=== PATIENT | female | born 1990 | race Caucasian/White ===

== ENCOUNTER 2016-08-23 16:37 | Emergency (ER) | payer SELFPAY ==
[~2016-08-23] VITALS: Ht 165.1 cm; Wt 60.0 kg
[~2016-08-23 16:37] MED LIST: CEPH500 PO; SULF-154 PO
[2016-08-23 16:38] VITALS: BP 141/81; PULSE 81; RESP 16; TEMP 98.4; O2SAT 99
[2016-08-23] MEDS ORDERED: ALBUAER3 INH (17:28)
[2016-08-23] MEDS ORDERED: AZIT250T3 PO (17:28)
--- NOTE | 2016-08-23 17:28 | PD ---
HPI Chief Complaint: Cold / Flu Symptoms Time Seen by Provider: 16:51 Travel History International Travel<30 days: No Contact w/Intl Traveler<30days: No Traveled to known affect area: No History of Present Illness HPI This is a 25-year-old female who presents to the emergency department with 10 days of productive cough with white sputum, constant, moderate severity, associated with some rhinorrhea. She denies any fevers or chills. Her aunt was just admitted to the hospital for bacterial pneumonia and she was concerned she may have the same. She does smoke cigarettes. PFSH Past Medical History Medical History: Denies Significant Hx Diminished Hearing: No Immunizations Current: Yes ?: Unknown LMP: 08/11/16 Menopausal: No : 3 Para: 2 Miscarriage: 1 : 0 Past Surgical History Oral Surgery: Yes Other Surgery: Yes (RT HAND) Social History Alcohol Use: No Tobacco Use: Yes Substance Use: No (denies IV drug use) Allergies-Medications (Allergen,Severity, Reaction): Coded Allergies: No Known Allergies (Verified , 01/07/16) Reported Meds & Prescriptions Reported Meds & Active Scripts Active Septra Ds (Trimethoprim/Sulfamethoxazole) Tab 1 Tab PO BID Keflex 500 mg Cap (Cephalexin Monohydrate) 500 Mg Cap 500 Mg PO QID Review of Systems Except as stated in HPI: all other systems reviewed are Neg Physical Exam Narrative GENERAL:Well appearing, no acute distress SKIN: Focused skin assessment warm and dry. HEAD: Atraumatic. Normocephalic. EYES: Pupils equal and round. No injection or drainage. ENT: Moist mucous membranes NECK: Trachea midline. CARDIOVASCULAR: Regular rate and rhythm. No murmur appreciated. RESPIRATORY: Clear to auscultation. Breath sounds equal bilaterally. GASTROINTESTINAL: Abdomen soft, non-tender, nondistended. MUSCULOSKELETAL: No obvious deformities. NEUROLOGICAL: Awake and alert. No obvious cranial nerve deficits. Moving all extremities. PSYCHIATRIC: Appropriate mood and affect; insight and judgment normal. Data Data Last Documented VS Vital Signs Date Time Temp Pulse Resp B/P Pulse Ox O2 Delivery O2 Flow Rate FiO2 08/23/16 16:54 100 Room Air 08/23/16 16:38 98.4 81 16 141/81 MDM Medical Decision Making Medical Screen Exam Complete: Yes Emergency Medical Condition: Yes Interpretation(s) Afebrile, no tachycardia, hypertensive Differential Diagnosis Bronchitis, pneumonia, upper respiratory infection Narrative Course This is a 25-year-old female who presents with cough and some rhinorrhea. She has a smoking history and her symptoms of been going on for a week and a half. She is not hypoxic and otherwise very well-appearing. I think it's reasonable to treat her for acute bronchitis with azithromycin and bronchodilators. I don' t think she requires any imaging or testing. Patient will be discharged home. Diagnosis Primary Impression: Bronchitis Patient Instructions: General Instructions Additional Instructions: If you develop severe chest pain, shortness of breath, sweating, lightheadedness , dizziness or difficulty breathing return to the emergency department immediately. Followup with your primary care physician in 2-3 days if your symptoms are not resolved. Med/Other Pt SpecificInfo: Prescription(s) given Scripts Albuterol 8.5 GM Inh (Proair Hfa 8.5 GM Inh)90 Mcg/Act Aer1 Puff INH Q4H PRN ( SHORTNESS OF BREATH) #1 INHALER Ref 0 108 mcg/actuation Prov:Sakshi Vu MD 08/23/16 Azithromycin 250 Mg [id number] Mg PO DIRECTED #6 TAB Take 2 tabs (500 mg) on day 1 then 1 tab daily x 4 days. Prov:Sakshi Vu MD 08/23/16 Disposition: 01 DISCHARGE HOME Condition: Stable Sakshi Vu MD August 23, 2016 17:28
== END 2016-08-23 17:34 | disposition home or self-care (01) ==
LOC: NEPD 16:37
DX: J40 Bronchitis, not specified as acute or chronic (principal); Z72.0 Tobacco use
CPT/HCPCS: 99283

== ENCOUNTER 2017-01-05 16:12 | Emergency (ER) | payer SELFPAY ==
[~2017-01-05 16:12] MED LIST changes: +ALBUAER3 INH; +AZIT250T3 PO
[2017-01-05 16:13] VITALS: BP 133/88; PULSE 111; RESP 14; TEMP 98.4; O2SAT 98
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
[2017-01-05] MEDS ORDERED: NEOM1SOL17 LEFT EAR (16:54)
== END 2017-01-05 17:16 | disposition home or self-care (01) ==
LOC: NEPK 16:12
DX: H72.92 Unspecified perforation of tympanic membrane, left ear (principal); Z72.0 Tobacco use
CPT/HCPCS: 99283

== ENCOUNTER 2017-04-29 10:47 | Emergency (ER) | payer SELFPAY ==
[~2017-04-29] VITALS: Ht 165.1 cm; Wt 56.6 kg
[~2017-04-29 10:47] MED LIST changes: +NEOM1SOL17 LEFT EAR
[2017-04-29 10:49] VITALS: BP 119/64; PULSE 83; RESP 14; TEMP 98.6; O2SAT 96
[2017-04-29] MEDS ORDERED: IBUP1TAB7 PO (12:40)
[2017-04-29] MEDS ORDERED: POLY10O LEFT EAR (12:40)
--- NOTE | 2017-04-29 12:41 | PD ---
HPI Chief Complaint: ENT Complaint Time Seen by Provider: 12:23 Travel History International Travel<30 days: No Contact w/Intl Traveler<30days: No Traveled to known affect area: No History of Present Illness HPI 26-year-old female presents to the emergency Department with complaint of left ear pain since last night. Denies injury. Denies fevers, cough, nasal congestion, sore throat, vomiting. Had old antibiotic eardrops that she used this morning one time. Rates pain 6/10. Describes as a throbbing sensation. No known aggravating or relieving factors. No known allergies. No primary care provider. Denies significant past medical history. Has no other medical complaints. No other modifying factors or associated signs and symptoms. PFSH Past Medical History Diminished Hearing: No Immunizations Current: Yes ?: Not LMP: 2 WEEKS AGO Menopausal: No : 3 Para: 2 Miscarriage: 1 : 0 Past Surgical History Oral Surgery: Yes Other Surgery: Yes (RT HAND) Social History Alcohol Use: No Tobacco Use: Yes Substance Use: Yes (MARIJUANA) Allergies-Medications (Allergen,Severity, Reaction): Coded Allergies: No Known Allergies (Verified Adverse Reaction, Unknown, 04/29/17) Reported Meds & Prescriptions Reported Meds & Active Scripts Active Ibuprofen 800 Mg Tab 800 Mg PO Q6HR PRN Polytrim Opth Drops (Polymyxin/Trimethoprim Sulfate) 10,000-0.1 Unit/Ml-% Soln 3 Drop LEFT EAR Q6HR 7 Days Review of Systems Except as stated in HPI: all other systems reviewed are Neg Physical Exam Narrative GENERAL: Well-nourished, well-developed female patient, in no acute distress; afebrile, nontoxic-appearing SKIN: Warm and dry. No rash. HEAD: Atraumatic. Normocephalic. EYES: Pupils equal and round. No scleral icterus. No injection or drainage. EARS: Bilateral pinnae and external canals appear within normal limits. Left ear canal is erythematous and with white matter noted in front of the tympanic membranes; I tried flushing the matter from the ear canal without success. Unable to visualize left tympanic membrane. Right Tympanic membrane without erythema, loss of landmarks, and with dullness; without perforation. ENT: Mucosa pink and moist. Oral Pharynx without erythema; without edema or exudates. No uvular edema. No uvular, palatal, or tonsillar deviation. Airway patent. NECK: Trachea midline. No lymphadenopathy. CARDIOVASCULAR: Regular rate. RESPIRATORY: No accessory muscle use. GASTROINTESTINAL: Flat. MUSCULOSKELETAL: No obvious deformities. No clubbing. No cyanosis. No edema. NEUROLOGICAL: Awake and alert. Oriented 3. No obvious cranial nerve deficits. Motor grossly within normal limits. Normal speech. Moves all extremities. 5/5 strength to all extremities. PSYCHIATRIC: Appropriate mood and affect; insight and judgment normal. Data Data Last Documented VS Vital Signs Date Time Temp Pulse Resp B/P (MAP) Pulse Ox O2 Delivery O2 Flow Rate FiO2 04/29/17 10:49 98.6 83 14 119/64 (82) 96 Orders Orders Ibuprofen (Motrin) (04/29/17 12:45) Ed Discharge Order (04/29/17 12:41) MDM Medical Decision Making Medical Screen Exam Complete: Yes Emergency Medical Condition: Yes Medical Record Reviewed: Yes Differential Diagnosis Otitis media, otitis externa, foreign body, cerumen impaction Narrative Course 26-year-old female with possible left otitis externa. There is a white matter in front of the tympanic membrane that may be consistent with bacterial infection. The left ear canal is mildly erythematous and pain is elicited with the otoscope on physical exam. Patient is afebrile and nontoxic-appearing. I' ll treat the patient with Polytrim antibiotic drops for possible otitis externa. Patient provided information for [facility] clinic for follow-up. Instructed patient to follow up with ENT as needed. Ibuprofen Polytrim antibiotic drops prescribed for home. Instructed patient to follow up with primary care provider. Patient verbalizes understanding and agreement with treatment plan. Patient is medically cleared and stable for discharge. Discussed reasons to return to the emergency department. Patient agrees with treatment plan. The patients vital signs are stable and the patient is stable for outpatient follow-up and treatment. Patient discharged home, stable and in no acute distress. Diagnosis Primary Impression: Left otitis externa Qualified Codes: H60.92 - Unspecified otitis externa, left ear Referrals: [facility] Primary Care Physician Patient Instructions: General Instructions, Otitis Externa (ED) Additional Instructions: Use antibiotic eardrops as prescribed Ibuprofen or Tylenol as directed and as needed to reduce pain and fever Okoi-wae-xtgkikl antihistamines or decongestants as directed and as needed for symptom management Avoid getting water in the ears Do not put anything in the ears; including Q-tips Follow-up with primary care provider Follow-up with ENT Information to [facility] has been provided in her discharge instructions for follow-up Return to the emergency department immediately with worsening of symptoms Med/Other Pt SpecificInfo: Prescription(s) given Scripts Ibuprofen (Ibuprofen) 800 Mg Tab 800 MG PO Q6HR Y for PAIN, #30 TAB 0 Refills Prov: Nicole Ordonez 04/29/17 Polymyxin B-Trimethoprim Opth Drops (Polytrim Opth Drops) 10,000-0.1 Unit/Ml-% Soln 3 DROP LEFT EAR Q6HR for Mgmt Bacterial Infection for 7 Days, #1 BOTTLE 0 Refills Prov: Nicole Ordonez 04/29/17 Disposition: 01 DISCHARGE HOME Condition: Stable Nicole Ordonez Apr 29, 2017 12:41
[2017-04-29] MEDS ORDERED: IBUPROFEN 800 MG TAB PO ONE (12:45)
== END 2017-04-29 12:55 | disposition home or self-care (01) ==
LOC: NEPK 10:47
DX: H60.92 Unspecified otitis externa, left ear (principal); Z72.0 Tobacco use
CPT/HCPCS: 99283

== ENCOUNTER 2017-06-28 16:35 | Emergency (ER) | payer SELFPAY ==
[~2017-06-28] VITALS: Ht 165.1 cm; Wt 55.0 kg
[~2017-06-28 16:35] MED LIST changes: -ALBUAER3 INH; -AZIT250T3 PO; -CEPH500 PO; +IBUP1TAB7 PO; -NEOM1SOL17 LEFT EAR; +POLY10O LEFT EAR; -SULF-154 PO
[2017-06-28 16:44] VITALS: BP 118/56; PULSE 85; RESP 16; TEMP 98.1; O2SAT 99
[2017-06-28] MEDS ORDERED: TRIA.1%T TOPICAL (19:47)
--- NOTE | 2017-06-28 19:56 | PD ---
HPI Chief Complaint: Skin Problem Time Seen by Provider: 19:43 Travel History International Travel<30 days: No Contact w/Intl Traveler<30days: No Traveled to known affect area: No History of Present Illness HPI Examined in the presence of a female nurse. 26-year-old female presents for evaluation of pruritic rash on the chest wall. Symptoms started today. She reports pruritus, constant, burning sensation when she scratches. She reports that her fianc currently has a "MRSA" infection and this is why she presented here for evaluation. She denies any medications, creams, lotions, detergents, clothing, recent change in living environment. She has no other complaints at this time. PFSH Past Medical History Diminished Hearing: No Immunizations Current: Yes ?: Not LMP: 06/22/17 Menopausal: No : 3 Para: 2 Miscarriage: 1 : 0 Past Surgical History Oral Surgery: Yes Other Surgery: Yes (RT HAND) Social History Alcohol Use: No Tobacco Use: Yes Substance Use: Yes (MARIJUANA) Allergies-Medications (Allergen,Severity, Reaction): Coded Allergies: No Known Allergies (Verified Adverse Reaction, Unknown, 04/29/17) Reported Meds & Prescriptions Reported Meds & Active Scripts Active Triamcinolone Topical (Triamcinolone Acetonide) 0.1% Cream 1 Applic TOPICAL BID 14 Days Ibuprofen 800 Mg Tab 800 Mg PO Q6HR PRN Polytrim Opth Drops (Polymyxin/Trimethoprim Sulfate) 10,000-0.1 Unit/Ml-% Soln 3 Drop LEFT EAR Q6HR 7 Days Review of Systems General / Constitutional: No: Fever, Chills HENT: No: Headaches, Sore Throat, Congestion Cardiovascular: No: Chest Pain or Discomfort Respiratory: No: Cough Gastrointestinal: No: Nausea, Vomiting, Abdominal Pain Skin: Positive Rash, Positive Itching Physical Exam Narrative GENERAL: Well-developed well-nourished female no acute distress SKIN: Warm and dry. The patient has several scattered papular lesions on the chest wall. There is no erythema, no induration, no vesicles, no pustules, no purpura, no petechiae HEAD: Atraumatic. Normocephalic. EYES: Pupils equal and round. No scleral icterus. No injection or drainage. ENT: No nasal bleeding or discharge. Mucous membranes pink and moist. NECK: Trachea midline. No JVD. CARDIOVASCULAR: Regular rate and rhythm. No murmur appreciated. RESPIRATORY: No accessory muscle use. Clear to auscultation. Breath sounds equal bilaterally. Data Data Last Documented VS Vital Signs Date Time Temp Pulse Resp B/P (MAP) Pulse Ox O2 Delivery O2 Flow Rate FiO2 06/28/17 19:45 18 06/28/17 16:44 98.1 85 118/56 (76) 99 MDM Medical Decision Making Medical Screen Exam Complete: Yes Emergency Medical Condition: Yes Medical Record Reviewed: Yes Differential Diagnosis Irritant contact dermatitis, folliculitis, bug bites, viral exanthem, pityriasis rosea Narrative Course The patient has a 1 day history of pruritic papular lesions on the upper chest wall. Physical examination is benign. She has a few scattered papular lesions most likely representing an irritant contact dermatitis. She will be discharged with a short course of triamcinolone cream. Diagnosis Primary Impression: Pruritic rash Additional Instructions: Benadryl for itching. Avoid scratching. Medication as prescribed. Return for any emergent medical conditions. Med/Other Pt SpecificInfo: Prescription(s) given Scripts Triamcinolone Topical (Triamcinolone Topical) 0.1% Cream 1 APPLIC TOPICAL BID for Inflammation for 14 Days, GM 0 Refills Prov: Maged Dick MD 06/28/17 Disposition: 01 DISCHARGE HOME Condition: Stable Baldemar Min Jun 28, 2017 19:56
== END 2017-06-28 20:05 | disposition home or self-care (01) ==
LOC: NEPD 16:35
DX: L29.9 Pruritus, unspecified (principal); Z72.0 Tobacco use
CPT/HCPCS: 99283

== ENCOUNTER 2017-09-28 08:11 | Emergency (ER) | payer MEDICAID ==
[~2017-09-28] VITALS: Ht 165.1 cm; Wt 60.0 kg
[~2017-09-28 08:11] MED LIST changes: +TRIA.1%T TOPICAL
[2017-09-28 08:14] VITALS: BP 110/70; PULSE 78; RESP 16; TEMP 98.2; O2SAT 100
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
--- NOTE | 2017-09-28 11:05 | RADRPT ---
EXAM DATE: 09/28/2017 10:56 AM EDT AGE/SEX: 26 years / Female INDICATIONS: Pelvic pain, recent trauma to belly with vaginal bleeding. CLINICAL DATA: This is the patient's initial encounter. Patient reports that signs and symptoms have been present for 1 day and indicates a pain score of 4/10. MEDICAL/SURGICAL HISTORY: . UTI. Non-responsive. Right hand surgery. COMPARISON: synapse default, US PELVIS ([facility] PREG/ECTOPIC) W/TRANSVAG, 07/13/2011. . MEASUREMENTS: Uterus:__9.5 x 7.6 x 6.5 Endometrial Stripe:__11 mm Right Ovary:__ 3.6 x 2.0 x 1.4 Left Ovary:__ 4.2 x 2.5 2.0 cm FINDINGS: Uterus: There is a gestational sac seen within the endometrial cavity measuring 2.4 x 2.2 x 0.8 cm c orresponding to a estimated gestational age of 6 weeks 5 days. A yolk sac is seen. What appears to be a crown-rump length is also seen measuring 3.89 mm corresponding to a gestational age of 6 weeks 1 d ay. cardiac activity is not seen. There is echogenic material seen within the inferior endometr ial cavity which likely represents some hemorrhage. Right Ovary: Small subcentimeter cysts/follicles are seen. Left Ovary: There is a 2.2 x 2.0 x 1.7 cm hypoechoic masslike area seen in the left ovary likely rel ated to corpus luteum. Other: There is trace free fluid in the cul-de-sac. CONCLUSION: 1. There appears to be a gestational sac is seen within the endometrial cavity. This corresponds to a gestational age of 6 weeks 5 days. A possible small embryo is seen. cardiac activity is not s een at this time. Follow-up would be recommended. 2. Echogenic material within the inferior aspect of the endometrial cavity likely related to some he morrhage. 3. 2.2 cm hypoechoic masslike area in the left ovary likely related to corpus luteum. Electronically signed by: Juan Jensen MD 09/28/2017 11:03 AM EDT
== END 2017-09-28 12:28 | disposition home or self-care (01) ==
LOC: NEPC 08:11
DX: O20.9 Hemorrhage in early pregnancy, unspecified (principal); O26.891 Other specified pregnancy related conditions, first trimester; R10.9 Unspecified abdominal pain; O99.331 Smoking (tobacco) complicating pregnancy, first trimester; W50.0XXA Accidental hit or strike by another person, initial encounter; F17.290 Nicotine dependence, other tobacco product, uncomplicated; Z3A.01 Less than 8 weeks gestation of pregnancy; Z79.899 Other long term (current) drug therapy
CPT/HCPCS: 76700; 76817; 84702; 84703; 87210; 87491; 87591; 99284

== ENCOUNTER 2017-10-01 21:46 | Emergency (ER) | payer SELFPAY ==
[~2017-10-01] VITALS: Ht 165.1 cm; Wt 55.0 kg
[2017-10-01 21:58] VITALS: BP 121/59; PULSE 87; RESP 16; TEMP 99; O2SAT 99
--- NOTE | 2017-10-01 23:38 | PD ---
HPI Chief Complaint: Related Problem Time Seen by Provider: 23:34 Travel History International Travel<30 days: No Contact w/Intl Traveler<30days: No Traveled to known affect area: No History of Present Illness HPI She comes in complaining of ongoing vaginal bleeding since September 28 and now has gotten worse and heavier over the last day or so. Patient states that she has had previous miscarriages in the past and this feels just like 1 of them. Patient denies any alleviating or aggravating factors. Patient denies any associated factors such as fever, rash, nausea, vomiting, diarrhea, chest pain, back pain, headache. No nondrug allergies Past medical history significant for currently , UTI currently being treated for, orthopedic surgery to right hand, marijuana use, cigarette smoke. PFSH Past Medical History Diminished Hearing: No Immunizations Current: Yes ?: Menopausal: No : 3 Para: 2 Miscarriage: 1 : 0 Past Surgical History Oral Surgery: Yes Other Surgery: Yes (RT HAND) Social History Alcohol Use: No Tobacco Use: Yes (1-3 black and milds a day) Substance Use: Yes (MARIJUANA) Allergies-Medications (Allergen,Severity, Reaction): Coded Allergies: No Known Allergies (Verified Adverse Reaction, Unknown, 10/01/17) Reported Meds & Prescriptions Reported Meds & Active Scripts Active No Active Prescriptions or Reported Medications Review of Systems General / Constitutional: No: Fever Eyes: No: Visual changes HENT: No: Headaches Cardiovascular: No: Chest Pain or Discomfort Respiratory: No: Shortness of Breath Gastrointestinal: No: Abdominal Pain Genitourinary: Positive: Vaginal Bleeding Musculoskeletal: No: Pain Skin: No Rash Neurologic: No: Weakness Psychiatric: No: Depression Endocrine: No: Polydipsia Hematologic/Lymphatic: No: Easy Bruising Physical Exam Narrative GENERAL: SKIN: Warm and dry. HEAD: Atraumatic. Normocephalic. EYES: Pupils equal and round. No scleral icterus. No injection or drainage. ENT: No nasal bleeding or discharge. Mucous membranes pink and moist. NECK: Trachea midline. No JVD. CARDIOVASCULAR: Regular rate and rhythm. RESPIRATORY: No accessory muscle use. Clear to auscultation. Breath sounds equal bilaterally. GASTROINTESTINAL: Abdomen soft, non-tender, nondistended. MUSCULOSKELETAL: Extremities without clubbing, cyanosis, or edema. No obvious deformities. NEUROLOGICAL: Awake and alert. No obvious cranial nerve deficits. Motor grossly within normal limits. Five out of 5 muscle strength in the arms and legs. Normal speech. PSYCHIATRIC: Appropriate mood and affect; insight and judgment normal. Data Data Last Documented VS Vital Signs Date Time Temp Pulse Resp B/P (MAP) Pulse Ox O2 Delivery O2 Flow Rate FiO2 10/01/17 23:48 71 15 111/58 (75) 99 Room Air 10/01/17 21:58 99.0 Orders Orders Complete Blood Count With Diff (10/01/17 23:43) Beta Hcg (Quant/Titer) (10/01/17 23:43) Iv Access Insert/Monitor (10/01/17 23:43) Ketorolac Inj (Toradol Inj) (10/01/17 23:45) Sodium Chlor 0.9% 1000 Ml Inj (Ns 1000 M (10/01/17 23:45) Ondansetron Odt (Zofran Odt) (10/01/17 23:45) Labs Laboratory Tests Test 10/01/17 23:58 White Blood Count 13.4 TH/MM3 Red Blood Count 3.48 MIL/MM3 Hemoglobin 10.6 GM/DL Hematocrit 31.2 % Mean Corpuscular Volume 89.5 FL Mean Corpuscular Hemoglobin 30.3 PG Mean Corpuscular Hemoglobin Concent 33.9 % Red Cell Distribution Width 13.3 % Platelet Count 289 TH/MM3 Mean Platelet Volume 8.0 FL Neutrophils (%) (Auto) 70.7 % Lymphocytes (%) (Auto) 18.8 % Monocytes (%) (Auto) 8.9 % Eosinophils (%) (Auto) 1.2 % Basophils (%) (Auto) 0.4 % Neutrophils # (Auto) 9.4 TH/MM3 Lymphocytes # (Auto) 2.5 TH/MM3 Monocytes # (Auto) 1.2 TH/MM3 Eosinophils # (Auto) 0.2 TH/MM3 Basophils # (Auto) 0.1 TH/MM3 CBC Comment DIFF FINAL Differential Comment Human Chorionic Gonadotropin, Quant 5172 MIU/ML [facility] Medical Decision Making Medical Screen Exam Complete: Yes Emergency Medical Condition: Yes Medical Record Reviewed: Yes Differential Diagnosis Threatened AB versus inevitable AB versus incomplete AB Narrative Course CBC shows reactive leukocytosis of 13.4, mild anemia of 02/10, normal platelet count, no left shift. Quantitative is now down to 5172 this is consistent with an ongoing AB Diagnosis Primary Impression: Miscarriage Patient Instructions: General Instructions, Miscarriage (ED) Scripts Tramadol (Ultram) 50 Mg Tab 50 MG PO Q6H Y for PAIN, #12 TAB 0 Refills Prov: Bernardino Dunne MD 10/02/17 Disposition: 01 DISCHARGE HOME Condition: Stable Bernardino Dunne MD Oct 01, 2017 23:38
[2017-10-01] MEDS ORDERED: ONDANSETRON ODT 4 MG TAB PO ONE (23:45)
[2017-10-01] MEDS ORDERED: KETOROLAC TROMETHAMINE 30 MG/ML (IVP) VIAL IV PUSH ONE (23:45)
[2017-10-01] MEDS ORDERED: SODIUM CHLOR 0.9% 1000 ML INJ 1,000 ML IV ONE (23:45)
[2017-10-01 23:48] VITALS: BP 111/58; PULSE 71; RESP 15; O2SAT 99
[2017-10-02 00:36] LABS: AUTOMATED NEUTROPHIL # 9.4 TH/MM3 (1.8-7.7); BASOPHIL # 0.1 TH/MM3 (0-0.2); BASOPHIL % 0.4 % (0.0-2.0); EOSINOPHIL # 0.2 TH/MM3 (0-0.4); EOSINOPHIL % 1.2 % (0.0-4.0); HEMATOCRIT 31.2 % (35.0-46.0); HEMOGLOBIN 10.6 GM/DL (11.6-15.3); LYMPH % 18.8 % (9.0-44.0); LYMPHOCYTE # 2.5 TH/MM3 (1.0-4.8); MEAN CELL VOLUME 89.5 FL (80.0-100.0); MEAN CORPUSCULAR HEMOGLOBIN 30.3 PG (27.0-34.0); MEAN CORPUSCULAR HGB CONC 33.9 % (32.0-36.0); MONO % 8.9 % (0.0-8.0); MONOCYTE # 1.2 TH/MM3 (0-0.9); NEUT % 70.7 % (16.0-70.0); PLATELET COUNT 289 TH/MM3 (150-450); RED BLOOD COUNT 3.48 MIL/MM3 (4.00-5.30); RED CELL DISTRIBUTION WIDTH 13.3 % (11.6-17.2); WHITE BLOOD COUNT 13.4 TH/MM3 (4.0-11.0)
[2017-10-02] MEDS ORDERED: TRAM50 PO (01:41)
== END 2017-10-02 02:37 | disposition home or self-care (01) ==
LOC: NEPC 21:46
DX: O20.0 Threatened abortion (principal); D72.829 Elevated white blood cell count, unspecified; D64.9 Anemia, unspecified; F17.210 Nicotine dependence, cigarettes, uncomplicated; F12.90 Cannabis use, unspecified, uncomplicated
CPT/HCPCS: 84702; 85025; 96374; 99284; J1885; J7030